=== PATIENT | male | born 1935 | race African-American/Black ===

== ENCOUNTER 2018-01-19 05:17 | Inpatient (IN) | payer MEDICARE, MEDICAID ==
--- NOTE | 2018-01-19 05:46 | ED Physician Chart ---
ED Chief Complaint/HPI - Patient Information Allergies:: Allergies Allergy/AdvReac Type Severity Reaction Status Date / Time No Known Allergies Allergy Verified 01/19/18 05:42 Vitals:: Vital Signs - 8 hr 01/19/18 05:25 Temp 97.9 F HR 50 RR 18 BP 128/46 O2 Sat % 100 <Yung Ch - Last Filed: 01/19/18 08:42> - Patient Information Date Seen:: 01/19/18 Time Seen:: 05:45 Chief Complaint:: Generalized weakness History of Present Illness:: 82 yo male was brought from [facility] to ER for evaluation of generalized weakness. Patient also complained itchiness on the web areas of left hand. Allergies:: Allergies Allergy/AdvReac Type Severity Reaction Status Date / Time No Known Allergies Allergy Verified 01/19/18 05:42 <Val Luna - Last Filed: 01/19/18 11:30> ED Review of Systems - Review of Systems General/Constitutional: No fever Skin: Skin lesions Head: No headache ENT: No nasal drainage Neck: No neck pain Cardio Vascular: No chest pain Pulmonary: No SOB GI: No nausea, No vomiting Musculoskeletal: No bone or joint pain Neurological: No focal symptoms <Val Luna - Last Filed: 01/19/18 11:30> ED Past Medical History - Past Medical History Past Medical History: HTN, DM, Asthma/COPD, Dyslipidemia, PUD/GERD, Other (GI hemorrage, ataxia, park pain, acute kidney failure, pancreatitis) Social History: Non Smoker, No Alcohol, No Drug Use Surgical History: None <Val Luna - Last Filed: 01/19/18 11:30> Family Medical History - Family Member Mother History Unknown: Yes <Val Luna - Last Filed: 01/19/18 11:30> ED Physical Exam - Physical Examination General/Constitutional: Awake Other Gen/Cons comments:: oriented x 1 Head: Atraumatic Eyes: PERRL Other Skin comments:: plaques at the web between left thumb and second fingers and web between second and third fingers. ENMT: Nasal exam nl Neck: No nuchal rigidity Respiratory: No Wheeze/Rhonchi/Rales Cardio Vascular: RRR, No murmur, gallop, rubs, NL S1 S2 GI: No tenderness/rebounding/guarding Extremities: No edema Neuro/Psych: No focal deficits <Val Luna - Last Filed: 01/19/18 11:30> ED Labs/Radiology/EKG Results - Lab Results Results: Laboratory Tests 01/19/18 01/19/18 01/19/18 06:20 06:20 06:20 WBC 9.1 RBC 4.20 Hgb 12.2 Hct 35.9 L MCV 85.6 MCH 29.0 MCHC Differential 33.9 RDW 13.4 Plt Count 230 MPV 8.2 Neutrophils % 69.3 Lymphocytes % 14.8 L Monocytes % 12.0 H Eosinophils % 3.1 Basophils % 0.8 PT INR PTT (Actin FS) Sodium 139 Potassium 3.6 Chloride 105 Carbon Dioxide 28.2 Anion Gap 9.4 BUN 28 H Creatinine 1.3 Est GFR ( Amer) TNP Est GFR (Non-Af Amer) TNP BUN/Creatinine Ratio 21.5 Glucose 99 Calcium 9.7 Total Bilirubin 0.4 AST 18 ALT 11 Alkaline Phosphatase 70 Troponin I B-Natriuretic Peptide 25.2 Total Protein 7.0 Albumin 4.0 L Globulin 3.0 Albumin/Globulin Ratio 1.3 Lipase 01/19/18 01/19/18 01/19/18 06:20 06:20 06:20 WBC RBC Hgb Hct MCV MCH MCHC Differential RDW Plt Count MPV Neutrophils % Lymphocytes % Monocytes % Eosinophils % Basophils % PT 10.9 INR 1.05 PTT (Actin FS) 23.0 L Sodium Potassium Chloride Carbon Dioxide Anion Gap BUN Creatinine Est GFR ( Amer) Est GFR (Non-Af Amer) BUN/Creatinine Ratio Glucose Calcium Total Bilirubin AST ALT Alkaline Phosphatase Troponin I < 0.01 L B-Natriuretic Peptide Total Protein Albumin Globulin Albumin/Globulin Ratio Lipase 61 Comments:: BUN: 28 - Radiology Results Comments:: NAD <Yung Ch - Last Filed: 01/19/18 08:42> - EKG Interpretations EKG Time:: 06:08 Rate & Rhythm: 45 bpm, sinus bradycardia [place]: Normal axis Intervals: Normal Comments:: Non specific ST changes <Val Luna - Last Filed: 01/19/18 11:30> ED Assessment - Assessment General Assessment: Weakness Dehydration Bradycardia Eczema Dr. Ch assumed care at 07:00. <Val Luna - Last Filed: 01/19/18 11:30> ED Septic Shock - . Is Septic Shock (SBP<90, OR Lactate>4 mmol\L) present?: No - <6hrs of presentation: Vital Signs: Vital Signs - 8 hr 01/19/18 05:25 Temp 97.9 F HR 50 RR 18 BP 128/46 O2 Sat % 100 <Yung Ch - Last Filed: 01/19/18 08:42> - . Is Septic Shock (SBP<90, OR Lactate>4 mmol\L) present?: No <Val Luna - Last Filed: 01/19/18 11:30> ED Reassessment (Disposition) - Reassessment Reassessment Condition:: Improved - Diagnosis Diagnosis:: Weakness; Dehydration; Bradycardia - Aftercare/Follow up Instructions Aftercare/Follow-Up Instructions:: Counseled pt regarding lab results/diagnosis & need follow up, Counseled pt & family regarding lab results/diagnosis & need follow up - Patient Disposition Discharge/Transfer:: Acute Care w/in this hosp Accepting Physician:: Dr. Cabello Time Called:: 714 Time Responded:: 07:15 Admitted to:: Telemetry Spoke to:: Dr. Cabello Admitting Medical Physician:: Dr. Cabello Condition at Disposition:: Stable, Improved <Yung Ch - Last Filed: 01/19/18 08:42> ED Discharge Plan <Yung Ch - Last Filed: 01/19/18 08:42> <Val Luna - Last Filed: 01/19/18 11:30> - Patient Disposition Admit/Discharge/Transfer: Acute Care w/in this hosp
[2018-01-19 06:44] LABS: % BASOPHILS 0.8 % (0.0-2.0); % EOSINOPHILS 3.1 % (0.0-5.0); % LYMPHOCYTES 14.8 % (20.0-50.0); % NEUTROPHILS 69.3 % (40.0-80.0); BASOPHILE ABSOLUTE 0.1 Th/cumm (0-0.2); EOSINOPHILE ABSOLUTE 0.3 Th/cmm (0.1-0.4); HEMATOCRIT 35.9 % (41.0-60); HEMOGLOBIN 12.2 gm/dL (12-16); LYMPHOCYTE ABSOLUTE 1.3 Th/cmm (1.5-3.0); MEAN CELL VOLUME 85.6 fl (80-99); MEAN CORPUSCULAR HGB CONC 33.9 pg (28.0-36.0); MEAN PLATELET VOLUME 8.2 fl; MONOCYTE ABSOLUTE 1.1 Th/cmm (0.3-1.0); NEUTROPHILE ABSOLUTE 6.3 Th/cmm (1.8-8.0); PLATELET COUNT 230 Th/cmm (150-400); RED CELL DISTRIBUTION WIDTH 13.4 % (11.5-20.0); WHITE BLOOD COUNT 9.1 Th/cmm (4.8-10.8)
[2018-01-19 06:57] LABS: ALB/GLOB RATIO 1.3 (1.0-1.8); ALKALINE PHOSPHATASE 70 U/L (34-104); ANION GAP 9.4 (7.0-16.0); BILIRUBIN,TOTAL 0.4 mg/dL (0.3-1.0); BUN - UREA NITROGEN 28 mg/dL (7-25); CALCIUM SERUM 9.7 mg/dL (8.6-10.3); CARBON DIOXIDE 28.2 mEq/L (21.0-31.0); CHLORIDE 105 mEq/L (98-107); CREATININE - SERUM 1.3 mg/dL (0.7-1.3); GLUCOSE 99 mg/dL (70-105); POTASSIUM SERUM 3.6 mEq/L (3.5-5.1); SGOT 18 U/L (13-39); SGPT/ALT 11 U/L (7-52); SODIUM SERUM 139 mEq/L (136-145)
[2018-01-19 07:35] LABS: INR 1.05 (0.5-1.4); PROTHROMBIN TIME (TEST) 10.9 SECONDS (9.5-11.5)
--- NOTE | 2018-01-19 08:45 | Diagnostic Imaging Report ---
CHEST X-RAY: AP view INDICATION: Shortness of breath COMPARISON: None FINDINGS: Increased interstitial lung markings are noted with chronic changes. There is no focal consolidation or pleural effusions . Borderline prominent heart is noted. Atherosclerotic vascular noted. 2.2 cm calcification possibly previously loose body is seen along the left axillary region. There may have been old right eighth rib fracture. IMPRESSION: Increased initial lung markings suggestive of chronic lung changes and possible COPD. No focal consolidation or evidence of tejinder CHF. Cardiomegaly and atherosclerotic vascular disease. There may have been old right eighth rib fracture. No evidence of pneumothorax.
[2018-01-19 10:39] VITALS: BP 119/62
[2018-01-19] MEDS ORDERED: Albuterol/Ipratropium Neb 3 ML AERS HHN PRN (22:53)
[2018-01-19] MEDS ORDERED: Magnesium Hydroxide (MOM) 30 mL UDC PO PRN (22:53)
--- NOTE | 2018-01-20 00:14 | History & Physical ---
ADMIT DATE: 01/19/2018 CHIEF COMPLAINT: Dizziness and weakness and short of breath. HISTORY OF PRESENT ILLNESS: The patient is an 82-year-old -[place] male admitted from Emergency Room to telemetry floor of [facility] due to dizziness, worsening confusion and congestive heart failure as well as COPD exacerbation. The patient is very confused compared to his baseline status and he is also agitated, very noncompliant. On physical examination there are mild wheezing on both lung sanders. Chest x-ray revealed findings also suggestive of COPD. RT protocol ordered. The patient refused IV from time to time. The patient's vital signs is however, basically stable. Troponin less than 0.01. BUN 28, creatinine 1.3. PAST MEDICAL HISTORY: COPD, pneumonia, congestive heart failure, urinary tract infection, sepsis, anxiety, noncompliance, decubitus ulcer, coronary artery disease, status post cerebrovascular accident. PAST SURGICAL HISTORY: This cannot be reliably obtained. MEDICATIONS: See medication reconciliation list. ALLERGIES: No known drug allergy. FAMILY HISTORY: Noncontributory. SOCIAL HISTORY: The patient smoked before, quit years ago. No history of alcohol or IV drug abuse. REVIEW OF SYSTEMS: As per HPI. PHYSICAL EXAMINATION: GENERAL: Well-developed female in no acute distress. SKIN: Warm and dry. VITAL SIGNS: Basically stable. HEENT: Normocephalic, atraumatic. Pupils equal, round, react to light and accommodation. CHEST: Symmetrical. LUNGS: Few wheezing appreciated. HEART: Normal sinus rhythm. S1, S2. ABDOMEN: Benign, soft, nontender. EXTREMITIES: No clubbing, cyanosis or edema bilaterally 2+. NEUROLOGIC: Unremarkable. LABORATORY DATA: Reviewed. ASSESSMENT AND PLAN: 1. Dizziness: Observe closely, workup in progress. 2. Altered level of consciousness due to metabolic encephalopathy and dementia. We will observe closely. 3. Chronic obstructive pulmonary disease exacerbation: RT protocol. 4. Respiratory insufficiency: Aspiration precaution be exercised. 5. Noncompliance: Education provided. 6. Agitation: Observe closely, p.r.n. 7. Dehydration: This could be partially due to the diuretics the patient is on. 8. Difficult walking: Physical therapy and fall precaution be exercised. 9. History of psychosis: Close monitoring. Continue medication. We will adjust accordingly. JOB# [id number]
[2018-01-20] MEDS: Multivitamin w/ Minerals Tab PO SCH (08:47)
[2018-01-20] MEDS: Aspirin 81mg Chewable Tab PO SCH (08:47)
[2018-01-20] MEDS: Atorvastatin Calcium 10 MG TAB PO SCH (22:13)
--- NOTE | 2018-01-20 22:51 | Internal Medicine Prog Note ---
Internal Medicine Subjective - Subjective Service Date: 01/20/18 Patient seen and examined:: with staff, other (c/o severe itching) Patient is:: awake, verbal, interactive, arousable, in wheelchair Patient Complaints of:: congestion, sore throat, cough, LBP, headache Per staff patient has:: no adverse event Internal Medicine Objective - Results Result Diagrams: 01/19/18 06:20 01/19/18 06:20 Recent Labs: Laboratory Last Values WBC 9.1 Th/cmm (4.8-10.8) 01/19/18 06:20 RBC 4.20 Mil/cmm (3.80-5.80) 01/19/18 06:20 Hgb 12.2 gm/dL (12-16) 01/19/18 06:20 Hct 35.9 % (41.0-60) L 01/19/18 06:20 MCV 85.6 fl (80-99) 01/19/18 06:20 MCH 29.0 pg (27.0-31.0) 01/19/18 06:20 MCHC Differential 33.9 pg (28.0-36.0) 01/19/18 06:20 RDW 13.4 % (11.5-20.0) 01/19/18 06:20 Plt Count 230 Th/cmm (150-400) 01/19/18 06:20 MPV 8.2 fl 01/19/18 06:20 Neutrophils % 69.3 % (40.0-80.0) 01/19/18 06:20 Lymphocytes % 14.8 % (20.0-50.0) L 01/19/18 06:20 Monocytes % 12.0 % (2.0-10.0) H 01/19/18 06:20 Eosinophils % 3.1 % (0.0-5.0) 01/19/18 06:20 Basophils % 0.8 % (0.0-2.0) 01/19/18 06:20 PT 10.9 SECONDS (9.5-11.5) 01/19/18 06:20 INR 1.05 (0.5-1.4) 01/19/18 06:20 PTT (Actin FS) 23.0 SECONDS (26.0-38.0) L 01/19/18 06:20 Sodium 139 mEq/L (136-145) 01/19/18 06:20 Potassium 3.6 mEq/L (3.5-5.1) 01/19/18 06:20 Chloride 105 mEq/L (98-107) 01/19/18 06:20 Carbon Dioxide 28.2 mEq/L (21.0-31.0) 01/19/18 06:20 Anion Gap 9.4 (7.0-16.0) 01/19/18 06:20 BUN 28 mg/dL (7-25) H 01/19/18 06:20 Creatinine 1.3 mg/dL (0.7-1.3) 01/19/18 06:20 Est GFR ( Amer) TNP 01/19/18 06:20 Est GFR (Non-Af Amer) TNP 01/19/18 06:20 BUN/Creatinine Ratio 21.5 01/19/18 06:20 Glucose 99 mg/dL (70-105) 01/19/18 06:20 Calcium 9.7 mg/dL (8.6-10.3) 01/19/18 06:20 Total Bilirubin 0.4 mg/dL (0.3-1.0) 01/19/18 06:20 AST 18 U/L (13-39) 01/19/18 06:20 ALT 11 U/L (7-52) 01/19/18 06:20 Alkaline Phosphatase 70 U/L (34-104) 01/19/18 06:20 Troponin I < 0.01 ng/mL (0.01-0.05) L 01/19/18 06:20 B-Natriuretic Peptide 25.2 pg/mL (5.0-100.0) 01/19/18 06:20 Total Protein 7.0 gm/dL (6.0-8.3) 01/19/18 06:20 Albumin 4.0 gm/dL (4.2-5.5) L 01/19/18 06:20 Globulin 3.0 gm/dL 01/19/18 06:20 Albumin/Globulin Ratio 1.3 (1.0-1.8) 01/19/18 06:20 Lipase 61 U/L (11-82) 01/19/18 06:20 - Physical Exam Vitals and I&O: Vital Signs Temp 97.9 F 01/20/18 16:00 Pulse 55 01/20/18 20:42 Resp 20 01/20/18 20:42 BP 123/67 01/20/18 17:08 Pulse Ox 96 01/20/18 20:42 Intake & Output 01/20/18 01/20/18 01/21/18 06:59 18:59 06:59 Intake Total 360 Balance 360 Weight (lbs) 91.626 kg Intake: Oral 360 Other: # Voids 3 Weight Source Bedscale Active Medications: Current Medications Acetaminophen (Tylenol) 650 mg PO Q6H PRN PRN Reason: Pain or Fever >101 Stop: 03/20/18 22:52 Albuterol/Ipratropium (Duoneb Neb) 3 ml HHN Q6HRT PRN PRN Reason: Shortness of Breath Stop: 03/20/18 22:52 Aspirin (Aspirin Chewable) 81 mg PO DAILY [facility] Stop: 03/21/18 08:59 Last Admin: 01/20/18 08:47 Dose: 81 mg Atorvastatin Calcium (Lipitor) 20 mg PO [facility] Stop: 03/21/18 20:59 Last Admin: 01/20/18 22:13 Dose: 20 mg Bisacodyl (Dulcolax 10 Mg Supp) 10 mg RC DAILY PRN PRN Reason: Constipation Stop: 03/20/18 22:52 Diphenhydramine HCl (Benadryl) 50 mg PO TID PRN PRN Reason: Itching Stop: 03/21/18 15:31 Last Admin: 01/20/18 22:14 Dose: 50 mg Docusate Sodium (Colace) 100 mg PO BID [facility] Stop: 03/21/18 08:59 Last Admin: 01/20/18 17:07 Dose: 100 mg Hydrochlorothiazide (Hctz) 12.5 mg PO BID [facility] Stop: 03/21/18 08:59 Last Admin: 01/20/18 17:08 Dose: 12.5 mg Magnesium Hydroxide (Milk Of Magnesia) 30 ml PO DAILY PRN PRN Reason: Constipation Stop: 03/20/18 22:52 Mirtazapine (Remeron) 7.5 mg PO HS [facility]; Protocol Stop: 03/21/18 20:59 Last Admin: 01/20/18 22:13 Dose: 7.5 mg Olanzapine (Zyprexa) 2.5 mg PO BID [facility]; Protocol Stop: 03/21/18 08:59 Last Admin: 01/20/18 17:07 Dose: 2.5 mg General: weak, lethargic, congested HEENT: NC/AT, PERRLA, EOMI, anicteric sclerae, throat clear, thyromegaly, dry oral mucosa Neck: Supple, No JVD, No thyromegaly, +2 carotid pulse wo bruit, No LAD Lungs: congested, wheezing Cardiovascular: RRR, Normal S1, Normal S2 Abdomen: soft, non-tender, non-distended, positive bowel sound Extremities: clear, pedal pulses, excoriation, rash Internal Medicine Assmt/Plan - Assessment Assessment: Severe pruritus: Benadryl prn ordered. COPD exacerbation: RT protocol. Respiratory Insufficiency: aspiration precaution. Agitation: on and off; observe for now. ALOC: improving. Noncompliance: better. Dizziness: improving. Difficult walking: fall precaution and PT. DVT prophylaxis.
[2018-01-21] MEDS: Aspirin 81mg Chewable Tab PO SCH (09:11)
[2018-01-21] MEDS: Multivitamin w/ Minerals Tab PO SCH (09:11)
[2018-01-21] MEDS: Atorvastatin Calcium 10 MG TAB PO SCH (21:02)
--- NOTE | 2018-01-21 23:33 | Internal Medicine Prog Note ---
Internal Medicine Subjective - Subjective Service Date: 01/21/18 Patient is:: awake, verbal, interactive, arousable, in wheelchair Patient Complaints of:: congestion, sore throat, cough, LBP, headache Per staff patient has:: no adverse event Internal Medicine Objective - Results Result Diagrams: 01/19/18 06:20 01/19/18 06:20 Recent Labs: Laboratory Last Values WBC 9.1 Th/cmm (4.8-10.8) 01/19/18 06:20 RBC 4.20 Mil/cmm (3.80-5.80) 01/19/18 06:20 Hgb 12.2 gm/dL (12-16) 01/19/18 06:20 Hct 35.9 % (41.0-60) L 01/19/18 06:20 MCV 85.6 fl (80-99) 01/19/18 06:20 MCH 29.0 pg (27.0-31.0) 01/19/18 06:20 MCHC Differential 33.9 pg (28.0-36.0) 01/19/18 06:20 RDW 13.4 % (11.5-20.0) 01/19/18 06:20 Plt Count 230 Th/cmm (150-400) 01/19/18 06:20 MPV 8.2 fl 01/19/18 06:20 Neutrophils % 69.3 % (40.0-80.0) 01/19/18 06:20 Lymphocytes % 14.8 % (20.0-50.0) L 01/19/18 06:20 Monocytes % 12.0 % (2.0-10.0) H 01/19/18 06:20 Eosinophils % 3.1 % (0.0-5.0) 01/19/18 06:20 Basophils % 0.8 % (0.0-2.0) 01/19/18 06:20 PT 10.9 SECONDS (9.5-11.5) 01/19/18 06:20 INR 1.05 (0.5-1.4) 01/19/18 06:20 PTT (Actin FS) 23.0 SECONDS (26.0-38.0) L 01/19/18 06:20 Sodium 139 mEq/L (136-145) 01/19/18 06:20 Potassium 3.6 mEq/L (3.5-5.1) 01/19/18 06:20 Chloride 105 mEq/L (98-107) 01/19/18 06:20 Carbon Dioxide 28.2 mEq/L (21.0-31.0) 01/19/18 06:20 Anion Gap 9.4 (7.0-16.0) 01/19/18 06:20 BUN 28 mg/dL (7-25) H 01/19/18 06:20 Creatinine 1.3 mg/dL (0.7-1.3) 01/19/18 06:20 Est GFR ( Amer) TNP 01/19/18 06:20 Est GFR (Non-Af Amer) TNP 01/19/18 06:20 BUN/Creatinine Ratio 21.5 01/19/18 06:20 Glucose 99 mg/dL (70-105) 01/19/18 06:20 Calcium 9.7 mg/dL (8.6-10.3) 01/19/18 06:20 Total Bilirubin 0.4 mg/dL (0.3-1.0) 01/19/18 06:20 AST 18 U/L (13-39) 01/19/18 06:20 ALT 11 U/L (7-52) 01/19/18 06:20 Alkaline Phosphatase 70 U/L (34-104) 01/19/18 06:20 Troponin I < 0.01 ng/mL (0.01-0.05) L 01/19/18 06:20 B-Natriuretic Peptide 25.2 pg/mL (5.0-100.0) 01/19/18 06:20 Total Protein 7.0 gm/dL (6.0-8.3) 01/19/18 06:20 Albumin 4.0 gm/dL (4.2-5.5) L 01/19/18 06:20 Globulin 3.0 gm/dL 01/19/18 06:20 Albumin/Globulin Ratio 1.3 (1.0-1.8) 01/19/18 06:20 Lipase 61 U/L (11-82) 01/19/18 06:20 - Physical Exam Vitals and I&O: Vital Signs Temp 98.0 F 01/21/18 21:00 Pulse 62 01/21/18 21:00 Resp 20 01/21/18 21:00 BP 116/49 01/21/18 21:00 Pulse Ox 99 01/21/18 21:00 Intake & Output 01/21/18 01/21/18 01/22/18 06:59 18:59 06:59 Intake Total 480 Output Total 1 Balance 479 Weight (lbs) 91.172 kg Intake: Oral 480 Output: Stool 1 Other: # Voids 2 # Bowel Movements 1 Weight Source Bedscale Active Medications: Current Medications Acetaminophen (Tylenol) 650 mg PO Q6H PRN PRN Reason: Pain or Fever >101 Stop: 03/20/18 22:52 Albuterol/Ipratropium (Duoneb Neb) 3 ml HHN Q6HRT PRN PRN Reason: Shortness of Breath Stop: 03/20/18 22:52 Aspirin (Aspirin Chewable) 81 mg PO DAILY [facility] Stop: 03/21/18 08:59 Last Admin: 01/21/18 09:11 Dose: 81 mg Atorvastatin Calcium (Lipitor) 20 mg PO [facility] Stop: 03/21/18 20:59 Last Admin: 01/21/18 21:02 Dose: 20 mg Bisacodyl (Dulcolax 10 Mg Supp) 10 mg RC DAILY PRN PRN Reason: Constipation Stop: 03/20/18 22:52 Diphenhydramine HCl (Benadryl) 50 mg PO TID PRN PRN Reason: Itching Stop: 03/21/18 15:31 Last Admin: 01/21/18 21:03 Dose: 50 mg Docusate Sodium (Colace) 100 mg PO BID [facility] Stop: 03/21/18 08:59 Last Admin: 01/21/18 16:40 Dose: 100 mg Hydrochlorothiazide (Hctz) 12.5 mg PO BID [facility] Stop: 03/21/18 08:59 Last Admin: 01/21/18 16:40 Dose: 12.5 mg Magnesium Hydroxide (Milk Of Magnesia) 30 ml PO DAILY PRN PRN Reason: Constipation Stop: 03/20/18 22:52 Mirtazapine (Remeron) 7.5 mg PO HS [facility]; Protocol Stop: 03/21/18 20:59 Last Admin: 01/21/18 21:03 Dose: 7.5 mg Olanzapine (Zyprexa) 2.5 mg PO BID [facility]; Protocol Stop: 03/21/18 08:59 Last Admin: 01/21/18 16:40 Dose: 2.5 mg General: weak, lethargic, congested HEENT: NC/AT, PERRLA, EOMI, anicteric sclerae, throat clear, thyromegaly, dry oral mucosa Neck: Supple, No JVD, No thyromegaly, +2 carotid pulse wo bruit, No LAD Lungs: congested, wheezing Cardiovascular: RRR, Normal S1, Normal S2 Abdomen: soft, non-tender, non-distended, positive bowel sound Extremities: clear, pedal pulses, excoriation, rash Internal Medicine Assmt/Plan - Assessment Assessment: COPD exacerbation: RT protocol. Severe pruritus: Benadryl prn ordered. Respiratory Insufficiency: aspiration precaution. Agitation: on and off; observe for now. ALOC: improving. Noncompliance: better. Dizziness: improving. Difficult walking: fall precaution and PT. DVT prophylaxis.
[2018-01-22] MEDS: Aspirin 81mg Chewable Tab PO SCH (09:40)
[2018-01-22] MEDS: Multivitamin w/ Minerals Tab PO SCH (09:41)
[2018-01-22] MEDS: Atorvastatin Calcium 10 MG TAB PO SCH (22:04)
--- NOTE | 2018-01-22 22:17 | Internal Medicine Prog Note ---
Internal Medicine Subjective - Subjective Service Date: 01/22/18 Patient is:: awake, verbal, interactive, arousable, in wheelchair Patient Complaints of:: congestion, sore throat, cough, LBP, headache Per staff patient has:: no adverse event Internal Medicine Objective - Results Result Diagrams: 01/19/18 06:20 01/19/18 06:20 Recent Labs: Laboratory Last Values WBC 9.1 Th/cmm (4.8-10.8) 01/19/18 06:20 RBC 4.20 Mil/cmm (3.80-5.80) 01/19/18 06:20 Hgb 12.2 gm/dL (12-16) 01/19/18 06:20 Hct 35.9 % (41.0-60) L 01/19/18 06:20 MCV 85.6 fl (80-99) 01/19/18 06:20 MCH 29.0 pg (27.0-31.0) 01/19/18 06:20 MCHC Differential 33.9 pg (28.0-36.0) 01/19/18 06:20 RDW 13.4 % (11.5-20.0) 01/19/18 06:20 Plt Count 230 Th/cmm (150-400) 01/19/18 06:20 MPV 8.2 fl 01/19/18 06:20 Neutrophils % 69.3 % (40.0-80.0) 01/19/18 06:20 Lymphocytes % 14.8 % (20.0-50.0) L 01/19/18 06:20 Monocytes % 12.0 % (2.0-10.0) H 01/19/18 06:20 Eosinophils % 3.1 % (0.0-5.0) 01/19/18 06:20 Basophils % 0.8 % (0.0-2.0) 01/19/18 06:20 PT 10.9 SECONDS (9.5-11.5) 01/19/18 06:20 INR 1.05 (0.5-1.4) 01/19/18 06:20 PTT (Actin FS) 23.0 SECONDS (26.0-38.0) L 01/19/18 06:20 Sodium 139 mEq/L (136-145) 01/19/18 06:20 Potassium 3.6 mEq/L (3.5-5.1) 01/19/18 06:20 Chloride 105 mEq/L (98-107) 01/19/18 06:20 Carbon Dioxide 28.2 mEq/L (21.0-31.0) 01/19/18 06:20 Anion Gap 9.4 (7.0-16.0) 01/19/18 06:20 BUN 28 mg/dL (7-25) H 01/19/18 06:20 Creatinine 1.3 mg/dL (0.7-1.3) 01/19/18 06:20 Est GFR ( Amer) TNP 01/19/18 06:20 Est GFR (Non-Af Amer) TNP 01/19/18 06:20 BUN/Creatinine Ratio 21.5 01/19/18 06:20 Glucose 99 mg/dL (70-105) 01/19/18 06:20 Calcium 9.7 mg/dL (8.6-10.3) 01/19/18 06:20 Total Bilirubin 0.4 mg/dL (0.3-1.0) 01/19/18 06:20 AST 18 U/L (13-39) 01/19/18 06:20 ALT 11 U/L (7-52) 01/19/18 06:20 Alkaline Phosphatase 70 U/L (34-104) 01/19/18 06:20 Troponin I < 0.01 ng/mL (0.01-0.05) L 01/19/18 06:20 B-Natriuretic Peptide 25.2 pg/mL (5.0-100.0) 01/19/18 06:20 Total Protein 7.0 gm/dL (6.0-8.3) 01/19/18 06:20 Albumin 4.0 gm/dL (4.2-5.5) L 01/19/18 06:20 Globulin 3.0 gm/dL 01/19/18 06:20 Albumin/Globulin Ratio 1.3 (1.0-1.8) 01/19/18 06:20 Lipase 61 U/L (11-82) 01/19/18 06:20 - Physical Exam Vitals and I&O: Vital Signs Temp 97.6 F 01/22/18 16:25 Pulse 94 01/22/18 19:07 Resp 18 01/22/18 19:07 BP 118/55 01/22/18 17:42 Pulse Ox 98 01/22/18 19:07 Intake & Output 01/22/18 01/22/18 01/23/18 06:59 18:59 06:59 Intake Total 500 650 Output Total 1 Balance 499 650 Weight (lbs) 91.172 kg 91.172 kg Intake: Oral 500 650 Output: Stool 1 Other: # Voids 2 4 # Bowel Movements 1 Weight Source Bedscale Bedscale Active Medications: Current Medications Acetaminophen (Tylenol) 650 mg PO Q6H PRN PRN Reason: Pain or Fever >101 Stop: 03/20/18 22:52 Albuterol/Ipratropium (Duoneb Neb) 3 ml HHN Q6HRT PRN PRN Reason: Shortness of Breath Stop: 03/20/18 22:52 Aspirin (Aspirin Chewable) 81 mg PO DAILY [facility] Stop: 03/21/18 08:59 Last Admin: 01/22/18 09:40 Dose: 81 mg Atorvastatin Calcium (Lipitor) 20 mg PO [facility] Stop: 03/21/18 20:59 Last Admin: 01/22/18 22:04 Dose: 20 mg Bisacodyl (Dulcolax 10 Mg Supp) 10 mg RC DAILY PRN PRN Reason: Constipation Stop: 03/20/18 22:52 Diphenhydramine HCl (Benadryl) 50 mg PO TID PRN PRN Reason: Itching Stop: 03/21/18 15:31 Last Admin: 01/21/18 21:03 Dose: 50 mg Docusate Sodium (Colace) 100 mg PO BID [facility] Stop: 03/21/18 08:59 Last Admin: 01/22/18 17:41 Dose: 100 mg Hydrochlorothiazide (Hctz) 12.5 mg PO BID [facility] Stop: 03/21/18 08:59 Last Admin: 01/22/18 17:42 Dose: 12.5 mg Magnesium Hydroxide (Milk Of Magnesia) 30 ml PO DAILY PRN PRN Reason: Constipation Stop: 03/20/18 22:52 Mirtazapine (Remeron) 7.5 mg PO [facility]; Protocol Stop: 03/21/18 20:59 Last Admin: 01/22/18 22:04 Dose: 7.5 mg Olanzapine (Zyprexa) 2.5 mg PO BID [facility]; Protocol Stop: 03/21/18 08:59 Last Admin: 01/22/18 17:41 Dose: 2.5 mg General: weak, lethargic, congested HEENT: NC/AT, PERRLA, EOMI, anicteric sclerae, throat clear, thyromegaly, dry oral mucosa Neck: Supple, No JVD, No thyromegaly, +2 carotid pulse wo bruit, No LAD Lungs: congested, wheezing Cardiovascular: RRR, Normal S1, Normal S2 Abdomen: soft, non-tender, non-distended, positive bowel sound Extremities: clear, pedal pulses, excoriation, rash Internal Medicine Assmt/Plan - Assessment Assessment: Respiratory Insufficiency: aspiration precaution. COPD exacerbation: RT protocol. Severe pruritus: Benadryl prn ordered. Agitation: on and off; observe for now. ALOC: improving. Noncompliance: better. Dizziness: improving. Difficult walking: fall precaution and PT. DVT prophylaxis. Nutritional Asmnt/Malnutr-PDOC - Dietary Evaluation Malnutrition Findings (Please click <Entered> for more info): Nutritional Asmnt/Malnutrition Start: 01/22/18 11: 40 Text: Status: Complete Freq: Protocol: Document 01/22/18 11:40 LLUC (Rec: 01/22/18 11:50 LLUC [email or web address]) Nutritional Asmnt/Malnutrition Patient General Information Nutritional Screening Moderate Risk Diagnosis CHF, dizziness Pertinent Medical Hx/Surgical Hx HTN, COPD, CHF, PNA, UTI, sepsis, anxiety, CAD, s/p CVA Subjective Information Patient sent from SNF for generalized weakness; confused per EMR. PO intake 100% per nursing notes. Patient seen sleeping in room. Current Diet Order/ Nutrition Support [facility] Soft ground NCS REZA Patient / S.O Can't verbalize diet edu Pertinent Medications lipitor, dulcolax, colace, MOM , HCTZ Pertinent Labs no new labs 01/19: Alb 4.0, BUN 28, Creat 1 .3 Nutritional Hx/Data Height 1.88 m Height (Calculated Centimeters) 188.0 Current Weight (lbs) 91.172 kg Weight (Calculated Kilograms) 91.2 Weight (Calculated Grams) 27868.1 [place] Body Weight 190 % [place] Body Weight 106 Body Mass Index (BMI) 25.8 Weight Status Overweight GI Symptoms GI Symptoms None Difficult in: Chewing Swallowing Usual diet at home Mech Soft ground NCS REZA at SNF Skin Integrity/Comment: Andrew 17; intact per EMR Current %PO Good (75-100%) Estimated Nutritional Goals BEE in Kcals: Using Current wt Calories/Kcals/Kg 25-27 Kcals Calculated 1063-5740 Protein: Using Current wt Protein g/k.8-1 Protein Calculated 73-91 Fluid: ml per MD d/t hx CHF Nutritional Problem No current Nutrition Prob Problem no nutrition dx Intervention/Recommendation Comments 1. Recommend continuing diet order. Expected Outcomes/Goals Expected Outcomes/Goals 1. PO intake to meet at least 75% of nutritional needs 2. Wt stability, skin to remain intact, labs to approach WNL. 3. F/U as low risk in 7 days, 01/29
[2018-01-23 07:11] LABS: % EOSINOPHILS 4.9 % (0.0-5.0); % LYMPHOCYTES 10.5 % (20.0-50.0); % MONOCYTES 8.8 % (2.0-10.0); % NEUTROPHILS 74.8 % (40.0-80.0); BASOPHILE ABSOLUTE 0.1 Th/cumm (0-0.2); EOSINOPHILE ABSOLUTE 0.5 Th/cmm (0.1-0.4); HEMATOCRIT 40.3 % (41.0-60); HEMOGLOBIN 13.4 gm/dL (12-16); MEAN CELL VOLUME 87.2 fl (80-99); MEAN CORPUSCULAR HEMOGLOBIN 28.9 pg (27.0-31.0); MEAN CORPUSCULAR HGB CONC 33.2 pg (28.0-36.0); MEAN PLATELET VOLUME 8.4 fl; MONOCYTE ABSOLUTE 0.8 Th/cmm (0.3-1.0); PLATELET COUNT 240 Th/cmm (150-400); RED BLOOD COUNT 4.62 Mil/cmm (3.80-5.80); RED CELL DISTRIBUTION WIDTH 13.3 % (11.5-20.0); WHITE BLOOD COUNT 9.4 Th/cmm (4.8-10.8)
[2018-01-23 07:28] LABS: ANION GAP 9.8 (7.0-16.0); BUN - UREA NITROGEN 19 mg/dL (7-25); CARBON DIOXIDE 29.6 mEq/L (21.0-31.0); CHLORIDE 104 mEq/L (98-107); CREATININE - SERUM 0.9 mg/dL (0.7-1.3); GLUCOSE 129 mg/dL (70-105); POTASSIUM SERUM 3.4 mEq/L (3.5-5.1); SODIUM SERUM 140 mEq/L (136-145)
[2018-01-23] MEDS: Aspirin 81mg Chewable Tab PO SCH (08:56)
[2018-01-23] MEDS: Multivitamin w/ Minerals Tab PO SCH (08:56)
[2018-01-23] MEDS ORDERED: Potassium Chloride 20 mEq ER Tab PO ONE (13:14)
--- NOTE | 2018-01-23 14:41 | Consultation ---
DATE OF CONSULTATION: 01/23/2018 PATIENT'S AGE: 82-year-old SEX: Male. PHYSICIAN: Dr. Pulliam [employer] CAR OPERATOR: Dr. Mcdermott. TYPE OF THE REPORT: Psychiatric consult. REASON FOR THE CONSULT: Confusion and depression. HISTORY OF PRESENT ILLNESS: The patient is an 82-year-old male who was admitted to the hospital because of dizziness and weakness as well as shortness of breath. The patient has been confused. The patient also has a history of congestive heart failure as well as COPD that is with exacerbation. According to the admission report, the patient has been confused, compared to his baseline status. The patient also has been having episodes of agitation. Chart reviewed and the patient interviewed. The patient is confused. He was not able to answer my questions and he kept sucking his thumb. The patient also was getting agitated when I was trying to ask him more questions. Also, sleep and appetite has been poor. PAST PSYCHIATRIC HISTORY: The patient has history of dementia and psychosis. The patient has been taking Remeron and Zyprexa. PAST MEDICAL HISTORY: The patient has history of COPD, pneumonia, congestive heart failure, and decubitus ulcer. The patient also is status post cerebrovascular accident. SOCIAL HISTORY: The patient lives in [facility]. No known alcohol or drug use. MENTAL STATUS EXAM: The patient appears his stated age. Anxious. Flat affect. Mood is irritable. The patient did not answer questions regarding hallucinations or delusions, but the patient is preoccupied. The patient is alert, but seems to be disoriented to time, place, person and situation. Impaired immediate, recent and remote memories. Poor insight and poor judgment at this time. ASSESSMENT: PRIMARY DIAGNOSIS: Unspecified psychosis. SECONDARY DIAGNOSIS: Dementia with psychosis. TREATMENT PLAN: We will continue monitoring his behavior and reevaluate. Also, we will continue Zyprexa 2.5 mg twice a day and we will increase Remeron to 15 mg at bedtime. Also, we will reevaluate for further recommendations. Thanks to Dr. Pulliam and will follow with you. [facility]# [id number]
[2018-01-23] MEDS: Atorvastatin Calcium 10 MG TAB PO SCH (21:30)
--- NOTE | 2018-01-23 23:24 | Internal Medicine Prog Note ---
Internal Medicine Subjective - Subjective Service Date: 01/23/18 Patient seen and examined:: without staff Patient is:: awake, verbal, interactive, arousable, in wheelchair Patient Complaints of:: congestion, sore throat, cough, LBP, headache Per staff patient has:: no adverse event Internal Medicine Objective - Results Result Diagrams: 01/23/18 06:03 01/23/18 06:03 Recent Labs: Laboratory Last Values WBC 9.4 Th/cmm (4.8-10.8) 01/23/18 06:03 RBC 4.62 Mil/cmm (3.80-5.80) 01/23/18 06:03 Hgb 13.4 gm/dL (12-16) 01/23/18 06:03 Hct 40.3 % (41.0-60) L 01/23/18 06:03 MCV 87.2 fl (80-99) 01/23/18 06:03 MCH 28.9 pg (27.0-31.0) 01/23/18 06:03 MCHC Differential 33.2 pg (28.0-36.0) 01/23/18 06:03 RDW 13.3 % (11.5-20.0) 01/23/18 06:03 Plt Count 240 Th/cmm (150-400) 01/23/18 06:03 MPV 8.4 fl 01/23/18 06:03 Neutrophils % 74.8 % (40.0-80.0) 01/23/18 06:03 Lymphocytes % 10.5 % (20.0-50.0) L 01/23/18 06:03 Monocytes % 8.8 % (2.0-10.0) 01/23/18 06:03 Eosinophils % 4.9 % (0.0-5.0) 01/23/18 06:03 Basophils % 1.0 % (0.0-2.0) 01/23/18 06:03 PT 10.9 SECONDS (9.5-11.5) 01/19/18 06:20 INR 1.05 (0.5-1.4) 01/19/18 06:20 PTT (Actin FS) 23.0 SECONDS (26.0-38.0) L 01/19/18 06:20 Sodium 140 mEq/L (136-145) 01/23/18 06:03 Potassium 3.4 mEq/L (3.5-5.1) L 01/23/18 06:03 Chloride 104 mEq/L (98-107) 01/23/18 06:03 Carbon Dioxide 29.6 mEq/L (21.0-31.0) 01/23/18 06:03 Anion Gap 9.8 (7.0-16.0) 01/23/18 06:03 BUN 19 mg/dL (7-25) 01/23/18 06:03 Creatinine 0.9 mg/dL (0.7-1.3) 01/23/18 06:03 Est GFR ( Amer) TNP 01/23/18 06:03 Est GFR (Non-Af Amer) TNP 01/23/18 06:03 BUN/Creatinine Ratio 21.1 01/23/18 06:03 Glucose 129 mg/dL (70-105) H 01/23/18 06:03 Calcium 10.0 mg/dL (8.6-10.3) 01/23/18 06:03 Total Bilirubin 0.4 mg/dL (0.3-1.0) 01/19/18 06:20 AST 18 U/L (13-39) 01/19/18 06:20 ALT 11 U/L (7-52) 01/19/18 06:20 Alkaline Phosphatase 70 U/L (34-104) 01/19/18 06:20 Troponin I < 0.01 ng/mL (0.01-0.05) L 01/19/18 06:20 B-Natriuretic Peptide 25.2 pg/mL (5.0-100.0) 01/19/18 06:20 Total Protein 7.0 gm/dL (6.0-8.3) 01/19/18 06:20 Albumin 4.0 gm/dL (4.2-5.5) L 01/19/18 06:20 Globulin 3.0 gm/dL 01/19/18 06:20 Albumin/Globulin Ratio 1.3 (1.0-1.8) 01/19/18 06:20 Lipase 61 U/L (11-82) 01/19/18 06:20 - Physical Exam Vitals and I&O: Vital Signs Temp 99 F 01/23/18 20:00 Pulse 56 01/23/18 20:00 Resp 14 01/23/18 20:00 BP 127/62 01/23/18 20:00 Pulse Ox 96 01/23/18 20:00 Intake & Output 01/23/18 01/23/18 01/24/18 06:59 18:59 06:59 Intake Total 550 750 Balance 550 750 Weight (lbs) 91.172 kg 91.172 kg Intake: Oral 550 750 Other: # Voids 2 4 # Bowel Movements 0 Weight Source Bedscale Bedscale Active Medications: Current Medications Acetaminophen (Tylenol) 650 mg PO Q6H PRN PRN Reason: Pain or Fever >101 Stop: 03/20/18 22:52 Albuterol/Ipratropium (Duoneb Neb) 3 ml HHN Q6HRT PRN PRN Reason: Shortness of Breath Stop: 03/20/18 22:52 Aspirin (Aspirin Chewable) 81 mg PO DAILY [facility] Stop: 03/21/18 08:59 Last Admin: 01/23/18 08:56 Dose: 81 mg Atorvastatin Calcium (Lipitor) 20 mg PO [facility] Stop: 03/21/18 20:59 Last Admin: 01/23/18 21:30 Dose: 20 mg Bisacodyl (Dulcolax 10 Mg Supp) 10 mg RC DAILY PRN PRN Reason: Constipation Stop: 03/20/18 22:52 Diphenhydramine HCl (Benadryl) 50 mg PO TID PRN PRN Reason: Itching Stop: 03/21/18 15:31 Last Admin: 01/21/18 21:03 Dose: 50 mg Docusate Sodium (Colace) 100 mg PO BID [facility] Stop: 03/21/18 08:59 Last Admin: 01/23/18 17:37 Dose: 100 mg Hydrochlorothiazide (Hctz) 12.5 mg PO BID [facility] Stop: 03/21/18 08:59 Last Admin: 01/23/18 17:37 Dose: 12.5 mg Magnesium Hydroxide (Milk Of Magnesia) 30 ml PO DAILY PRN PRN Reason: Constipation Stop: 03/20/18 22:52 Mirtazapine (Remeron) 15 mg PO [facility]; Protocol Stop: 03/24/18 20:59 Last Admin: 01/23/18 21:30 Dose: 15 mg Olanzapine (Zyprexa) 2.5 mg PO BID [facility]; Protocol Stop: 03/21/18 08:59 Last Admin: 01/23/18 17:37 Dose: 2.5 mg General: weak, lethargic, congested HEENT: NC/AT, PERRLA, EOMI, anicteric sclerae, throat clear, thyromegaly, dry oral mucosa Neck: Supple, No JVD, No thyromegaly, +2 carotid pulse wo bruit, No LAD Lungs: congested, wheezing Cardiovascular: RRR, Normal S1, Normal S2 Abdomen: soft, non-tender, non-distended, positive bowel sound Extremities: clear, pedal pulses, excoriation, rash Internal Medicine Assmt/Plan - Assessment Assessment: COPD exacerbation: RT protocol. Hypokalemia: supplement. Respiratory Insufficiency: aspiration precaution. Severe pruritus: Benadryl prn ordered. Agitation: on and off; observe for now. ALOC: improving. Noncompliance: better. Dizziness: improving. Difficult walking: fall precaution and PT. DVT prophylaxis. Nutritional Asmnt/Malnutr-PDOC - Dietary Evaluation Malnutrition Findings (Please click <Entered> for more info): Nutritional Asmnt/Malnutrition Start: 01/22/18 11: 40 Text: Status: Complete Freq: Protocol: Document 01/22/18 11:40 LLUC (Rec: 01/22/18 11:50 LLUC [email or web address]) Nutritional Asmnt/Malnutrition Patient General Information Nutritional Screening Moderate Risk Diagnosis CHF, dizziness Pertinent Medical Hx/Surgical Hx HTN, COPD, CHF, PNA, UTI, sepsis, anxiety, CAD, s/p CVA Subjective Information Patient sent from SNF for generalized weakness; confused per EMR. PO intake 100% per nursing notes. Patient seen sleeping in room. Current Diet Order/ Nutrition Support [facility] Soft ground NCS REZA Patient / S.O Can't verbalize diet edu Pertinent Medications lipitor, dulcolax, colace, MOM , HCTZ Pertinent Labs no new labs 01/19: Alb 4.0, BUN 28, Creat 1 .3 Nutritional Hx/Data Height 1.88 m Height (Calculated Centimeters) 188.0 Current Weight (lbs) 91.172 kg Weight (Calculated Kilograms) 91.2 Weight (Calculated Grams) 25970.1 [place] Body Weight 190 % [place] Body Weight 106 Body Mass Index (BMI) 25.8 Weight Status Overweight GI Symptoms GI Symptoms None Difficult in: Chewing Swallowing Usual diet at home Mech Soft ground NCS REZA at SNF Skin Integrity/Comment: Andrew 17; intact per EMR Current %PO Good (75-100%) Estimated Nutritional Goals BEE in Kcals: Using Current wt Calories/Kcals/Kg 25-27 Kcals Calculated 5747-0507 Protein: Using Current wt Protein g/k.8-1 Protein Calculated 73-91 Fluid: ml per MD d/t hx CHF Nutritional Problem No current Nutrition Prob Problem no nutrition dx Intervention/Recommendation Comments 1. Recommend continuing diet order. Expected Outcomes/Goals Expected Outcomes/Goals 1. PO intake to meet at least 75% of nutritional needs 2. Wt stability, skin to remain intact, labs to approach WNL. 3. F/U as low risk in 7 days, 01/29
[2018-01-24 05:49] LABS: ANION GAP 10.2 (7.0-16.0); BUN - UREA NITROGEN 24 mg/dL (7-25); CALCIUM SERUM 9.8 mg/dL (8.6-10.3); CARBON DIOXIDE 27.5 mEq/L (21.0-31.0); CHLORIDE 104 mEq/L (98-107); GLUCOSE 98 mg/dL (70-105); POTASSIUM SERUM 3.7 mEq/L (3.5-5.1); SODIUM SERUM 138 mEq/L (136-145)
[2018-01-24] MEDS: Aspirin 81mg Chewable Tab PO SCH (09:46)
[2018-01-24] MEDS: Multivitamin w/ Minerals Tab PO SCH (09:46)
--- NOTE | 2018-01-24 09:48 | Progress Notes ---
DATE: PSYCHIATRIC PROGRESS NOTE. SUBJECTIVE: Chart reviewed and the patient interviewed. Also discussed the patient's condition with the staff and reviewed records and labs. The patient is still in a depressed mood. The patient also is still confused and is still mumbling and talking to self. He also is still interacting minimally with the others and has difficulty expressing himself and his feelings. Otherwise, the patient is compliant with taking his medications and no side effects of Remeron. ASSESSMENT: The patient is still psychotic and confused. TREATMENT PLAN: Continue to monitor his behavior and continue Remeron and continue to follow up. [facility]# [id number]
--- NOTE | 2018-01-25 03:21 | Discharge Summary ---
DATE OF DISCHARGE: 01/24/2018 FINAL DIAGNOSES: 1. Altered level of consciousness, improved. 2. Chronic obstructive pulmonary disease, received RT protocol. 3. Noncompliance with education provided. 4. Hypokalemia, supplemented. 5. Respiratory insufficiency, stabilized. 6. Severe pruritus, improved. 7. Agitation on and off, but improved. 8. Dizziness, resolved. HOSPITAL COURSE: The patient is an 82-year-old -[place] male admitted due to dizziness, weakness, and some short of breath. The patient has COPD exacerbation and recent ablation treatment. He was noncompliant, but education provided with some effect. Dizziness actually resolved spontaneously after hospitalization. He was very confused and agitated in the beginning, but improved rapidly in this regard. The patient had dehydration as well in the beginning, but he refused any IV fluid. The patient's overall condition improved significantly during hospitalization with the proper management and education and he was accepted back to [facility]. DISCHARGE CONDITION: Stable. DISPOSITION: [facility]. DISCHARGE MEDICATION: Continue medication from here. DIET: Cardiac, soft diet. ACTIVITY: Up as tolerated with physical therapy. [facility]# [id number]
== END 2018-01-24 11:40 | DRG 190 ==
LOC: ER 05:17 → TELE 09:00 → MSI 01-20 16:18
PROVIDERS: ADMIT Internal Medicine; ATTEND Internal Medicine
DX: J44.1 Chronic obstructive pulmonary disease with (acute) exacerbation (principal); G93.41 Metabolic encephalopathy; F03.91 Unspecified dementia, unspecified severity, with behavioral disturbance; R42 Dizziness and giddiness; E86.0 Dehydration; E11.9 Type 2 diabetes mellitus without complications; E78.5 Hyperlipidemia, unspecified; K21.9 Gastro-esophageal reflux disease without esophagitis; R06.89 Other abnormalities of breathing; R00.1 Bradycardia, unspecified; L30.9 Dermatitis, unspecified; I50.9 Heart failure, unspecified; I11.0 Hypertensive heart disease with heart failure; I25.10 Atherosclerotic heart disease of native coronary artery without angina pectoris; L29.9 Pruritus, unspecified; F29 Unspecified psychosis not due to a substance or known physiological condition; E87.6 Hypokalemia; Z86.73 Personal history of transient ischemic attack (TIA), and cerebral infarction without residual deficits; Z91.14 Patient's other noncompliance with medication regimen; Z53.29 Procedure and treatment not carried out because of patient's decision for other reasons
CPT/HCPCS: 36415-UA; 71045-TC; 80048-TC; 80053-TC; 83690-TC; 83880-TC; 84484-TC; 85025-TC; 85610-TC; 93005; 94760; Z7610